=== PATIENT | female | born 1960 | race African-American/Black ===

== ENCOUNTER 2020-09-03 16:03 | Inpatient (IN) | payer MEDICARE, MEDICAID ==
[~2020-09-03] VITALS: Ht 167.6 cm; Wt 203.2 kg
[2020-09-03 17:15] LABS: BASOPHILS % 0.8 % (0.0-2.0); EOSINOPHILS % 2.1 % (0.0-5.0); HEMATOCRIT. 43.9 % (36.0-48.0); HEMOGLOBIN. 13.5 g/dL (12.0-16.0); LYMPHOCYTES % 8.2 % (20.0-50.0); MEAN CORPUSCULAR HEMOGLOBIN 25.9 pg (28.0-32.0); MEAN CORPUSCULAR VOLUME 83.9 fL (81.0-99.0); MEAN PLATELET VOLUME 7.9 fl (7.4-10.4); MONOCYTES % 4.9 % (2.0-8.0); PLATELET 358 x1000/uL (130-400); RED BLOOD CELL COUNT 5.23 mill/uL (4.2-5.4); RED CELL DISTRIBUTION WIDTH 17.6 % (11.6-14.6)
[2020-09-03 17:26] LABS: CHLORIDE 99 mEq/L (98-107)
[2020-09-03] MEDS ORDERED: FUROSEMIDE 40MG/4ML VIAL IV ONE (20:00)
[2020-09-03] MEDS ORDERED: ASPIRIN 81MG TABLET PO ONE (20:00)
[2020-09-04] VITALS (7 sets, daily range): BP systolic 112–168; BP diastolic 57–89
[2020-09-04] MEDS ORDERED: TRAZODONE HCL 50MG TABLET PO PRN (00:45)
[2020-09-04] MEDS ORDERED: ONDANSETRON HCL 4MG/2ML INJ IV PRN (00:45)
[2020-09-04] MEDS ORDERED: AMLODIPINE 10MG TABLET PO SCH ×2 (01:45→09:00)
[2020-09-04] MEDS: ACETAMINOPHEN 325MG TABLET PO PRN (04:47)
[2020-09-04] MEDS: HYDRALAZINE HCL 25MG TABLET PO SCH ×2 (06:27→13:14)
[2020-09-04] MEDS: FUROSEMIDE 40MG/4ML VIAL IV SCH ×2 (08:19→17:23)
[2020-09-04] MEDS: CARVEDILOL 3.125 MG TABLET PO SCH ×2 (08:20→23:19)
[2020-09-04] MEDS: HEPARIN 5000 UNITS/ML VIAL SUBCUT SCH ×2 (08:20→23:20)
[2020-09-04] MEDS ORDERED: LIDOCAINE HCL/PF 1% 2ML VIAL ONE (10:00)
[2020-09-04] MEDS ORDERED: IPRATROPIUM/ALBUTEROL 0.5-3(2.5)MG/3ML NEB HHN PRN (11:45)
[2020-09-04 12:12] LABS: BG BASE EXCESS 12.4 mmol/L (-2.0-2.0); BG FRACTION INSPIRED OXYGEN 60; BG HCO3 ACT 45.5 mmol/L (22.0-26.0); BG METHEMOGLOBIN 0.3 % (0.0-1.5); BG OXYHEMOGLOBIN 97.7 % (94.0-97.0); BG PCO2 116.9 mmHg (35.0-45.0); BG PH 7.208 (7.350-7.450); BG PO2 165.6 mmHg (75.0-100.0); BG SAMPLE SITE LEFT RADIAL; BG TOTAL HEMOGLOBIN 13.8 g/dL (12.0-18.0); BG VENT MODE MASK - BIPAP
[2020-09-04] MEDS: CEFTRIAXONE 1,000 MG in DEXTROSE 5% WATER 50 ML IV SCH (13:14)
[2020-09-04] MEDS: AZITHROMYCIN 250 MG TABLET PO SCH (13:14)
[2020-09-04 14:51] LABS: BG BASE EXCESS 6.9 mmol/L (-2.0-2.0); BG CARBOXYHEMOGLOBIN 1.1 % (0.5-1.5); BG DEOXYHEMOGLOBIN 2.7 % (0.0-5.0); BG FRACTION INSPIRED OXYGEN 40; BG HCO3 ACT 37.4 mmol/L (22.0-26.0); BG METHEMOGLOBIN 0.2 % (0.0-1.5); BG OXYGEN SATURATION 97.3 % (92.0-98.5); BG PCO2 87.7 mmHg (35.0-45.0); BG PH 7.248 (7.350-7.450); BG PO2 99.6 mmHg (75.0-100.0); BG SAMPLE SITE RIGHT RADIAL; BG TOTAL HEMOGLOBIN 13.4 g/dL (12.0-18.0); BG VENT MODE MASK - BIPAP
[2020-09-04] MEDS ORDERED: HYDRALAZINE HCL 25MG TABLET PO SCH (15:00)
[2020-09-04] MEDS: ACETYLCYSTEINE 100MG/ML 10% VIAL 4ML INH SCH ×2 (15:13→21:18)
[2020-09-04] MEDS: IPRATROPIUM/ALBUTEROL 0.5-3(2.5)MG/3ML NEB HHN SCH ×2 (15:15→21:18)
[2020-09-04 16:23] LABS: BASOPHILS % 0.8 % (0.0-2.0); EOSINOPHILS % 1.2 % (0.0-5.0); HEMATOCRIT. 40.1 % (36.0-48.0); HEMOGLOBIN. 12.2 g/dL (12.0-16.0); LYMPHOCYTES % 7.4 % (20.0-50.0); MEAN CORPUSCULAR HEMOGLOBIN 25.7 pg (28.0-32.0); MEAN CORPUSCULAR VOLUME 84.2 fL (81.0-99.0); MEAN PLATELET VOLUME 8.1 fl (7.4-10.4); MONOCYTES % 4.7 % (2.0-8.0); NEUTROPHILS % 85.9 % (40.0-76.0); PLATELET 342 x1000/uL (130-400); RED BLOOD CELL COUNT 4.77 mill/uL (4.2-5.4); RED CELL DISTRIBUTION WIDTH 17.4 % (11.6-14.6)
[2020-09-04 16:34] LABS: CHLORIDE 97 mEq/L (98-107)
[2020-09-04] MEDS: ASPIRIN 81MG TABLET PO SCH (17:23)
[2020-09-04 21:53] LABS: *AMPHETAMINES SCREEN URINE NEGATIVE (NEGATIVE); *BARBITURATES SCREEN URINE NEGATIVE (NEGATIVE); *BENZODIAZEPINES SCREEN URINE NEGATIVE (NEGATIVE); *COCAINE SCREEN URINE NEGATIVE (NEGATIVE); METHADONE URINE SCREEN NEGATIVE (NEGATIVE); OPIATES URINE SCREEN NEGATIVE (NEGATIVE)
[2020-09-04 21:54] LABS: CANNABINOID URINE SCREEN NEGATIVE (NEGATIVE); PHENCYCLIDINE URINE SCREEN NEGATIVE (NEGATIVE)
[2020-09-04] MEDS: HYDRALAZINE HCL 50MG TABLET PO SCH (23:19)
[2020-09-04] MEDS: DILTIAZEM HCL 30MG TABLET PO SCH (23:19)
[2020-09-05] VITALS (11 sets, daily range): BP systolic 119–141; BP diastolic 54–95
[2020-09-05] MEDS: IPRATROPIUM/ALBUTEROL 0.5-3(2.5)MG/3ML NEB HHN SCH ×4 (01:32→21:00)
[2020-09-05] MEDS: DILTIAZEM HCL 30MG TABLET PO SCH ×3 (06:00→22:10)
[2020-09-05] MEDS: HYDRALAZINE HCL 50MG TABLET PO SCH ×3 (06:00→22:10)
[2020-09-05 06:15] LABS: HEMATOCRIT. 40.6 % (36.0-48.0); HEMOGLOBIN. 12.4 g/dL (12.0-16.0); MEAN CORPUSCULAR HEMOGLOBIN 25.5 pg (28.0-32.0); MEAN CORPUSCULAR VOLUME 83.4 fL (81.0-99.0); MEAN PLATELET VOLUME 7.4 fl (7.4-10.4); PLATELET 319 x1000/uL (130-400); RED BLOOD CELL COUNT 4.87 mill/uL (4.2-5.4); RED CELL DISTRIBUTION WIDTH 17.5 % (11.6-14.6)
[2020-09-05 06:49] LABS: CHLORIDE 95 mEq/L (98-107)
[2020-09-05] MEDS: ACETYLCYSTEINE 100MG/ML 10% VIAL 4ML INH SCH ×3 (07:21→21:08)
[2020-09-05] MEDS: FUROSEMIDE 40MG/4ML VIAL IV SCH ×2 (08:50→16:54)
[2020-09-05] MEDS: ASPIRIN 81MG TABLET PO SCH (08:52)
[2020-09-05] MEDS: HEPARIN 5000 UNITS/ML VIAL SUBCUT SCH ×2 (08:52→22:10)
[2020-09-05] MEDS: AZITHROMYCIN 250 MG TABLET PO SCH (08:52)
[2020-09-05] MEDS: CARVEDILOL 3.125 MG TABLET PO SCH ×2 (08:59→22:09)
[2020-09-05 10:30] LABS: BG BASE EXCESS 10.6 mmol/L (-2.0-2.0); BG DEOXYHEMOGLOBIN 0.5 % (0.0-5.0); BG FRACTION INSPIRED OXYGEN 70; BG HCO3 ACT 42.3 mmol/L (22.0-26.0); BG METHEMOGLOBIN 0.3 % (0.0-1.5); BG OXYGEN SATURATION 99.5 % (92.0-98.5); BG OXYHEMOGLOBIN 98.2 % (94.0-97.0); BG PCO2 101.7 mmHg (35.0-45.0); BG PH 7.237 (7.350-7.450); BG PO2 259.4 mmHg (75.0-100.0); BG SAMPLE SITE RIGHT RADIAL; BG TOTAL HEMOGLOBIN 13.5 g/dL (12.0-18.0); BG TOTAL RESPIRATORY RATE 25 b/min; BG VENT MODE MASK - BIPAP
[2020-09-05] MEDS ORDERED: DEXTROSE 50% WATER 50ML SYRINGE IV PRN (11:00)
[2020-09-05] MEDS: BLOOD SUGAR DIAGNOSTIC STRIP TEST SCH ×3 (11:48→21:00)
[2020-09-05 12:07] LABS: NUCLEATED RED BLOOD CELLS 1 /100 WBC
[2020-09-05 12:08] LABS: PLATELET ESTIMATE NORMAL
[2020-09-05] MEDS: INSULIN LISPRO 100 UNITS/ML SUBCUT SCH ×3 (12:24→21:00)
[2020-09-05] MEDS: CEFTRIAXONE 1,000 MG in DEXTROSE 5% WATER 50 ML IV SCH (15:00)
[2020-09-06] VITALS (12 sets, daily range): BP systolic 123–154; BP diastolic 60–89
[2020-09-06] MEDS: IPRATROPIUM/ALBUTEROL 0.5-3(2.5)MG/3ML NEB HHN SCH ×4 (00:59→20:38)
[2020-09-06] MEDS: HYDRALAZINE HCL 50MG TABLET PO SCH ×3 (06:41→21:32)
[2020-09-06] MEDS: DILTIAZEM HCL 30MG TABLET PO SCH ×3 (06:42→21:32)
[2020-09-06 06:48] LABS: BASOPHILS % 0.5 % (0.0-2.0); EOSINOPHILS % 2.4 % (0.0-5.0); HEMATOCRIT. 39.1 % (36.0-48.0); MEAN CORPUSCULAR HEMOGLOBIN 25.9 pg (28.0-32.0); MEAN PLATELET VOLUME 8.1 fl (7.4-10.4); MONOCYTES % 8.7 % (2.0-8.0); NEUTROPHILS % 76.4 % (40.0-76.0); PLATELET 300 x1000/uL (130-400); RED BLOOD CELL COUNT 4.66 mill/uL (4.2-5.4); RED CELL DISTRIBUTION WIDTH 17.2 % (11.6-14.6)
[2020-09-06 07:04] LABS: CHLORIDE 94 mEq/L (98-107)
[2020-09-06] MEDS: BLOOD SUGAR DIAGNOSTIC STRIP TEST SCH ×4 (07:10→21:33)
[2020-09-06] MEDS: ACETYLCYSTEINE 100MG/ML 10% VIAL 4ML INH SCH ×2 (07:24→15:44)
[2020-09-06] MEDS: AZITHROMYCIN 250 MG TABLET PO SCH (08:34)
[2020-09-06] MEDS: ASPIRIN 81MG TABLET PO SCH (08:35)
[2020-09-06] MEDS: FUROSEMIDE 40MG/4ML VIAL IV SCH ×2 (08:35→17:57)
[2020-09-06] MEDS: ACETAMINOPHEN 325MG TABLET PO PRN ×2 (08:35→18:21)
[2020-09-06] MEDS: HEPARIN 5000 UNITS/ML VIAL SUBCUT SCH ×2 (08:35→21:31)
[2020-09-06] MEDS: CARVEDILOL 3.125 MG TABLET PO SCH ×2 (08:35→21:32)
[2020-09-06] MEDS: INSULIN LISPRO 100 UNITS/ML SUBCUT SCH ×4 (08:45→21:33)
[2020-09-06 11:28] LABS: BG CARBOXYHEMOGLOBIN 1.2 % (0.5-1.5); BG DEOXYHEMOGLOBIN 5.1 % (0.0-5.0); BG FRACTION INSPIRED OXYGEN 32; BG HCO3 ACT 37.5 mmol/L (22.0-26.0); BG METHEMOGLOBIN 0.2 % (0.0-1.5); BG OXYGEN SATURATION 94.8 % (92.0-98.5); BG OXYHEMOGLOBIN 93.5 % (94.0-97.0); BG PCO2 71.6 mmHg (35.0-45.0); BG PH 7.337 (7.350-7.450); BG PO2 74.7 mmHg (75.0-100.0); BG SAMPLE SITE RIGHT RADIAL; BG VENT MODE NASAL CANNULA
[2020-09-07] VITALS (13 sets, daily range): BP systolic 103–155; BP diastolic 43–87
[2020-09-07] MEDS: ACETAMINOPHEN 325MG TABLET PO PRN ×4 (00:25→21:22)
[2020-09-07] MEDS: IPRATROPIUM/ALBUTEROL 0.5-3(2.5)MG/3ML NEB HHN SCH ×4 (02:13→21:24)
[2020-09-07] MEDS: ACETYLCYSTEINE 100MG/ML 10% VIAL 4ML INH SCH ×4 (02:13→13:40)
[2020-09-07 05:45] LABS: CHLORIDE 93 mEq/L (98-107)
[2020-09-07] MEDS: HYDRALAZINE HCL 50MG TABLET PO SCH ×3 (06:10→21:22)
[2020-09-07] MEDS: BLOOD SUGAR DIAGNOSTIC STRIP TEST SCH ×4 (06:11→21:29)
[2020-09-07] MEDS: DILTIAZEM HCL 30MG TABLET PO SCH ×3 (06:11→21:21)
[2020-09-07 06:36] LABS: BASOPHILS % 0.6 % (0.0-2.0); EOSINOPHILS % 2.3 % (0.0-5.0); HEMATOCRIT. 42.9 % (36.0-48.0); HEMOGLOBIN. 12.9 g/dL (12.0-16.0); LYMPHOCYTES % 7.7 % (20.0-50.0); MEAN CORPUSCULAR HEMOGLOBIN 25.4 pg (28.0-32.0); MEAN CORPUSCULAR VOLUME 84.8 fL (81.0-99.0); MONOCYTES % 7.1 % (2.0-8.0); NEUTROPHILS % 82.3 % (40.0-76.0); RED BLOOD CELL COUNT 5.06 mill/uL (4.2-5.4); RED CELL DISTRIBUTION WIDTH 17.5 % (11.6-14.6)
[2020-09-07] MEDS: INSULIN LISPRO 100 UNITS/ML SUBCUT SCH ×4 (07:44→21:34)
[2020-09-07 08:01] LABS: PLATELET 275 x1000/uL (130-400)
[2020-09-07] MEDS: ASPIRIN 81MG TABLET PO SCH (08:53)
[2020-09-07] MEDS: FUROSEMIDE 40MG/4ML VIAL IV SCH ×2 (08:55→17:15)
[2020-09-07] MEDS: CARVEDILOL 3.125 MG TABLET PO SCH ×2 (08:55→21:21)
[2020-09-07] MEDS: HEPARIN 5000 UNITS/ML VIAL SUBCUT SCH (08:56)
[2020-09-07] MEDS ORDERED: BISACODYL 10MG SUPP PR PRN (10:00)
[2020-09-07 10:20] LABS: BG BASE EXCESS 16.4 mmol/L (-2.0-2.0); BG CARBOXYHEMOGLOBIN 1.1 % (0.5-1.5); BG DEOXYHEMOGLOBIN 1.6 % (0.0-5.0); BG FRACTION INSPIRED OXYGEN 40; BG HCO3 ACT 43.8 mmol/L (22.0-26.0); BG METHEMOGLOBIN 0.1 % (0.0-1.5); BG OXYGEN SATURATION 98.4 % (92.0-98.5); BG OXYHEMOGLOBIN 97.2 % (94.0-97.0); BG PCO2 65.3 mmHg (35.0-45.0); BG PH 7.444 (7.350-7.450); BG PO2 117.8 mmHg (75.0-100.0); BG SAMPLE SITE LEFT RADIAL; BG TOTAL HEMOGLOBIN 13.4 g/dL (12.0-18.0); BG VENT MODE NASAL CANNULA
[2020-09-07] MEDS: DOCUSATE SODIUM 250MG CAPSULE PO SCH (10:30)
[2020-09-07] MEDS: MAGNESIUM HYDROXIDE 400MG/5ML 30ML UDC PO SCH (10:31)
[2020-09-07] MEDS: SENNOSIDES 8.6MG TABLET PO SCH (10:31)
[2020-09-07] MEDS: BISACODYL 10MG SUPP PR SCH (10:39)
[2020-09-07] MEDS: MINERAL OIL ENEMA 133ML PR SCH ×2 (13:15→18:38)
[2020-09-07] MEDS ORDERED: POLYETHYLENE GLYCOL 3350 (17GM) 1 DOSE PACK PO PRN (13:15)
[2020-09-07] MEDS ORDERED: MAGNESIUM CITRATE 300ML SOLUTION PO SCH (13:15)
[2020-09-08] VITALS (12 sets, daily range): BP systolic 111–161; BP diastolic 55–90
[2020-09-08] MEDS: BLOOD SUGAR DIAGNOSTIC STRIP TEST SCH ×4 (05:35→20:59)
[2020-09-08] MEDS: DILTIAZEM HCL 30MG TABLET PO SCH ×3 (05:41→22:00)
[2020-09-08] MEDS: HYDRALAZINE HCL 50MG TABLET PO SCH ×3 (05:41→22:00)
[2020-09-08] MEDS: ACETYLCYSTEINE 100MG/ML 10% VIAL 4ML INH SCH ×2 (08:29→09:21)
[2020-09-08] MEDS: BISACODYL 10MG SUPP PR SCH (09:00)
[2020-09-08] MEDS: IPRATROPIUM/ALBUTEROL 0.5-3(2.5)MG/3ML NEB HHN SCH ×3 (09:21→20:56)
[2020-09-08] MEDS: DOCUSATE SODIUM 250MG CAPSULE PO SCH (09:25)
[2020-09-08] MEDS: MAGNESIUM HYDROXIDE 400MG/5ML 30ML UDC PO SCH ×2 (09:26→17:00)
[2020-09-08] MEDS: SENNOSIDES 8.6MG TABLET PO SCH (09:26)
[2020-09-08] MEDS: FUROSEMIDE 40MG/4ML VIAL IV SCH ×2 (09:26→17:00)
[2020-09-08] MEDS: CARVEDILOL 3.125 MG TABLET PO SCH ×2 (09:26→20:59)
[2020-09-08] MEDS: ASPIRIN 81MG TABLET PO SCH (09:26)
[2020-09-08] MEDS: INSULIN LISPRO 100 UNITS/ML SUBCUT SCH ×4 (09:27→21:00)
[2020-09-08] MEDS ORDERED: MORPHINE SULFATE 2 MG/ML CPJ (NOT FOR IM USE) IV SCH (10:15)
[2020-09-08] MEDS ORDERED: MINERAL OIL ENEMA 133ML PR SCH (11:00)
[2020-09-08 11:54] LABS: HEMATOCRIT. 40.3 % (36.0-48.0); HEMOGLOBIN. 12.6 g/dL (12.0-16.0); MEAN CORPUSCULAR HEMOGLOBIN 25.9 pg (28.0-32.0); MEAN PLATELET VOLUME 7.9 fl (7.4-10.4); PLATELET 339 x1000/uL (130-400); RED BLOOD CELL COUNT 4.85 mill/uL (4.2-5.4); RED CELL DISTRIBUTION WIDTH 17.2 % (11.6-14.6)
[2020-09-08] MEDS ORDERED: MAGNESIUM CITRATE 300ML SOLUTION PO SCH (12:00)
[2020-09-08 12:09] LABS: CHLORIDE 90 mEq/L (98-107)
[2020-09-08 12:27] LABS: NUCLEATED RED BLOOD CELLS 1 /100 WBC
[2020-09-08 12:28] LABS: PLATELET ESTIMATE NORMAL
[2020-09-08] MEDS: POLYETHYLENE GLYCOL 3350 (17GM) 1 DOSE PACK PO SCH (14:00)
[2020-09-08] MEDS ORDERED: INSULIN GLARGINE UD 100 UNITS/ML SYR SUBCUT SCH (15:30)
[2020-09-09] VITALS (14 sets, daily range): BP systolic 110–153; BP diastolic 47–77
[2020-09-09] MEDS: ACETYLCYSTEINE 100MG/ML 10% VIAL 4ML INH SCH (01:27)
[2020-09-09] MEDS: IPRATROPIUM/ALBUTEROL 0.5-3(2.5)MG/3ML NEB HHN SCH ×3 (01:28→16:28)
[2020-09-09] MEDS: DILTIAZEM HCL 30MG TABLET PO SCH ×3 (06:35→22:25)
[2020-09-09] MEDS: HYDRALAZINE HCL 50MG TABLET PO SCH ×3 (06:36→22:25)
[2020-09-09] MEDS: INSULIN LISPRO 100 UNITS/ML SUBCUT SCH ×4 (07:20→22:22)
[2020-09-09] MEDS: BLOOD SUGAR DIAGNOSTIC STRIP TEST SCH ×4 (07:43→21:00)
[2020-09-09] MEDS: ASPIRIN 81MG TABLET PO SCH (07:56)
[2020-09-09] MEDS: FUROSEMIDE 40MG/4ML VIAL IV SCH ×2 (07:56→17:16)
[2020-09-09] MEDS: CARVEDILOL 3.125 MG TABLET PO SCH ×2 (07:56→21:00)
[2020-09-09 08:54] LABS: BASOPHILS % 0.7 % (0.0-2.0); EOSINOPHILS % 1.9 % (0.0-5.0); HEMATOCRIT. 42.8 % (36.0-48.0); HEMOGLOBIN. 13.2 g/dL (12.0-16.0); LYMPHOCYTES % 10.9 % (20.0-50.0); MEAN CORPUSCULAR HEMOGLOBIN 25.7 pg (28.0-32.0); MEAN CORPUSCULAR VOLUME 83.5 fL (81.0-99.0); MONOCYTES % 8.4 % (2.0-8.0); NEUTROPHILS % 78.1 % (40.0-76.0); PLATELET 321 x1000/uL (130-400); RED BLOOD CELL COUNT 5.12 mill/uL (4.2-5.4); RED CELL DISTRIBUTION WIDTH 17.5 % (11.6-14.6)
[2020-09-09] MEDS: BISACODYL 10MG SUPP PR SCH (09:00)
[2020-09-09] MEDS: POLYETHYLENE GLYCOL 3350 (17GM) 1 DOSE PACK PO SCH (09:00)
[2020-09-09] MEDS: SENNOSIDES 8.6MG TABLET PO SCH (09:00)
[2020-09-09] MEDS: MAGNESIUM HYDROXIDE 400MG/5ML 30ML UDC PO SCH ×2 (09:00→16:23)
[2020-09-09] MEDS: DOCUSATE SODIUM 250MG CAPSULE PO SCH (09:00)
[2020-09-09 11:59] LABS: BG BASE EXCESS 14.9 mmol/L (-2.0-2.0); BG DEOXYHEMOGLOBIN 4.4 % (0.0-5.0); BG FRACTION INSPIRED OXYGEN 28; BG HCO3 ACT 42.7 mmol/L (22.0-26.0); BG METHEMOGLOBIN 0.3 % (0.0-1.5); BG OXYGEN SATURATION 95.5 % (92.0-98.5); BG OXYHEMOGLOBIN 94.3 % (94.0-97.0); BG PCO2 67.4 mmHg (35.0-45.0); BG PO2 78.7 mmHg (75.0-100.0); BG TOTAL HEMOGLOBIN 13.8 g/dL (12.0-18.0); BG VENT MODE NASAL CANNULA
[2020-09-09] MEDS ORDERED: INSULIN GLARGINE UD 100 UNITS/ML SYR SUBCUT NR (13:00)
[2020-09-09] MEDS: ACETAMINOPHEN 325MG TABLET PO PRN ×2 (14:41→22:25)
[2020-09-09 17:21] LABS: CHLORIDE 91 mEq/L (98-107)
[2020-09-10] VITALS (10 sets, daily range): BP systolic 106–151; BP diastolic 51–78
[2020-09-10] MEDS: IPRATROPIUM/ALBUTEROL 0.5-3(2.5)MG/3ML NEB HHN SCH ×3 (01:37→13:36)
[2020-09-10] MEDS: HYDRALAZINE HCL 50MG TABLET PO SCH ×2 (06:07→13:30)
[2020-09-10] MEDS: DILTIAZEM HCL 30MG TABLET PO SCH ×2 (06:08→13:30)
[2020-09-10] MEDS: BLOOD SUGAR DIAGNOSTIC STRIP TEST SCH ×2 (06:12→11:21)
[2020-09-10] MEDS: INSULIN LISPRO 100 UNITS/ML SUBCUT SCH ×2 (07:58→12:14)
[2020-09-10] MEDS: ASPIRIN 81MG TABLET PO SCH (08:41)
[2020-09-10] MEDS: FUROSEMIDE 40MG/4ML VIAL IV SCH (08:41)
[2020-09-10] MEDS: CARVEDILOL 3.125 MG TABLET PO SCH (08:42)
[2020-09-10] MEDS: POLYETHYLENE GLYCOL 3350 (17GM) 1 DOSE PACK PO SCH (08:42)
[2020-09-10] MEDS: DOCUSATE SODIUM 250MG CAPSULE PO SCH (08:42)
[2020-09-10] MEDS: MAGNESIUM HYDROXIDE 400MG/5ML 30ML UDC PO SCH (08:42)
[2020-09-10] MEDS: SENNOSIDES 8.6MG TABLET PO SCH (08:43)
[2020-09-10] MEDS: BISACODYL 10MG SUPP PR SCH (08:43)
[2020-09-10 09:39] LABS: BG BASE EXCESS 10.8 mmol/L (-2.0-2.0); BG CARBOXYHEMOGLOBIN 1.4 % (0.5-1.5); BG DEOXYHEMOGLOBIN 12.8 % (0.0-5.0); BG FRACTION INSPIRED OXYGEN 21; BG HCO3 ACT 36.8 mmol/L (22.0-26.0); BG METHEMOGLOBIN 0.3 % (0.0-1.5); BG OXYHEMOGLOBIN 85.5 % (94.0-97.0); BG PCO2 53.7 mmHg (35.0-45.0); BG PH 7.454 (7.350-7.450); BG PO2 50.4 mmHg (75.0-100.0); BG TOTAL HEMOGLOBIN 14.2 g/dL (12.0-18.0); BG VENT MODE ROOM AIR
[2020-09-10] MEDS ORDERED: INSULIN GLARGINE UD 100 UNITS/ML SYR SUBCUT SCH ×2 (10:00→12:00)
[2020-09-10] MEDS ORDERED: MOM PO (11:34)
[2020-09-10] MEDS ORDERED: HYDR-4135 PO (11:34)
[2020-09-10] MEDS ORDERED: DOCU250C14 PO (11:34)
[2020-09-10] MEDS ORDERED: ASPI-1160 PO (11:34)
[2020-09-10] MEDS ORDERED: SENN-170 PO (11:34)
[2020-09-10] MEDS ORDERED: LANTUSUD SUBCUT (11:34)
[2020-09-10] MEDS ORDERED: IPRA3AMP9 HHN (11:34)
[2020-09-10] MEDS ORDERED: DILT30TA38 PO (11:34)
[2020-09-10] MEDS ORDERED: COR3 PO (11:34)
[2020-09-10] MEDS ORDERED: FURO40TA5 PO (11:34)
[2020-09-10] MEDS ORDERED: FUROSEMIDE 40MG TABLET PO SCH (18:00)
== END 2020-09-10 16:30 | DRG 291 ==
LOC: ER 16:16 → EDBEDREQDT 09-04 00:07 → EDBEDREQTM 09-04 00:07 → EDBEDREQ 09-04 00:07 → ENRESERV 09-04 00:11 → 8WST 09-04 01:17 → 3WST 09-04 15:38
PROVIDERS: ADMIT Internal Medicine; ATTEND Internal Medicine
PROC: 5A09357 Assistance with Respiratory Ventilation, Less than 24 Consecutive Hours, Continuous Positive Airway Pressure (ICD-10-PCS; principal; 2020-09-04)
PROC: 5A09457 Assistance with Respiratory Ventilation, 24-96 Consecutive Hours, Continuous Positive Airway Pressure (ICD-10-PCS; 2020-09-04)
DX: I11.0 Hypertensive heart disease with heart failure (principal); I50.31 Acute diastolic (congestive) heart failure; J96.02 Acute respiratory failure with hypercapnia; G93.41 Metabolic encephalopathy; E66.2 Morbid (severe) obesity with alveolar hypoventilation; E87.2 Acidosis; I16.1 Hypertensive emergency; Z68.45 Body mass index [BMI] 70 or greater, adult; I27.29 Other secondary pulmonary hypertension; K59.00 Constipation, unspecified; I49.3 Ventricular premature depolarization; Z20.828 Contact with and (suspected) exposure to other viral communicable diseases; J44.9 Chronic obstructive pulmonary disease, unspecified; E11.65 Type 2 diabetes mellitus with hyperglycemia; Z59.0 Homelessness; Z79.899 Other long term (current) drug therapy; R53.81 Other malaise
CPT/HCPCS: 36415; 36600; 71045; 80048; 80053; 80305; 82140; 82375; 82805; 82962; 83036; 83735; 83880; 84484; 85025; 87635; 93005; 93306; 93970; 94640; 94660; 97162; 97164; 97166; 97530; 99285; A6261; J0696; J1644; J1815; J1940; J3490; J7040; J7060; J7608